=== PATIENT | male | born 1935 | race Hispanic/Latino ===

== ENCOUNTER 2018-02-04 13:55 | Emergency (ER) | payer MEDICARE, OTHER ==
--- NOTE | 2018-02-04 14:15 | Emergency Department Report ---
ED Neuro Deficit HPI - General Stated Complaint: CVA Time Seen by Provider: 02/04/18 13:55 Source: patient, EMS Mode of arrival: Stretcher Limitations: No Limitations - History of Present Illness Initial Comments: Patient is a 82-year-old mellitus July with left-sided weakness and left-sided paralysis. Patient states it started 1 hour ago. Patient states he woke up this way got out of bed and fell to the ground. Patient denies chest pain or shortness of breath. Patient denies headache. Patient denies blurry vision. Patient denies dizziness. According to patient was normally went to bed last night normal and the patient woke up one hour ago with the symptoms -: Sudden Location: speech, left face, dysarthria Presenting Symptoms: Present: Weak/Paralyzed One Side, Facial Droop/Numbness History of same: Yes Place: home Severity: severe Quality: weak, numb Improves With: none Worsens With: none On Anticoagulants: No Context: sudden onset Associated Symptoms: weakness. denies: confusion, chest pain, cough, diaphoresis, fever/chills, headaches, loss of appetite, malise, nausea/vomiting , vertigo, seizures, shortness of breath, syncope Treatments Prior to Arrival: none - Related Data Home Medications: Home Medications Medication Instructions Recorded Confirmed Last Taken Colchicine 0.6 mg PO QDAY 02/04/18 02/04/18 Unknown Diazepam [Valium] 5 mg PO QHS PRN 02/04/18 02/04/18 Unknown Simvastatin 20 mg PO QDAY 02/04/18 02/04/18 Unknown Valsartan/Hydrochlorothiazide 1 each PO QDAY 02/04/18 02/04/18 Unknown [Valsartan-Hctz 320-12.5 mg Tab] Previous Rx's Medication Instructions Recorded Last Taken Type oxyCODONE /ACETAMINOPHEN [Percocet 1 tab PO Q6HR PRN #20 tablet 04/09/14 Unknown Rx 5/325] Allergies/Adverse Reactions: Allergies Allergy/AdvReac Type Severity Reaction Status Date / Time Sulfa (Sulfonamide Allergy Unknown Unverified 01/15/14 13:19 Antibiotics) Penicillins AdvReac Unknown Verified 04/09/14 15:03 ED Review of Systems ROS: Stated complaint: CVA Other details as noted in HPI Constitutional: denies: chills, fever Eyes: denies: eye pain, eye discharge, vision change ENT: denies: ear pain, throat pain Respiratory: denies: cough, shortness of breath, wheezing Cardiovascular: denies: chest pain, palpitations Endocrine: no symptoms reported Gastrointestinal: denies: abdominal pain, nausea, diarrhea Genitourinary: denies: urgency, dysuria Musculoskeletal: denies: back pain, joint swelling, arthralgia Skin: denies: rash, lesions Neurological: weakness, numbness. denies: headache Psychiatric: denies: anxiety, depression Hematological/Lymphatic: denies: easy bleeding, easy bruising ED Past Medical Hx - Past Medical History Previous Medical History?: Yes Hx Hypertension: Yes Hx Heart Attack/AMI: Yes Hx Arthritis: Yes Additional medical history: HIGH CHOLESTEROL. GOUT. CAD - Surgical History Past Surgical History?: Yes Hx Coronary Stent: Yes (X3) Additional Surgical History: VASECTOMY. RIGHT KNEE SURGERY - Family History Family history: no significant - Social History Smoking Status: Never Smoker Substance Use Type: Alcohol - Medications Home Medications: Home Medications Medication Instructions Recorded Confirmed Last Taken Type oxyCODONE /ACETAMINOPHEN [Percocet 1 tab PO Q6HR PRN #20 tablet 04/09/14 Unknown Rx 5/325] Colchicine 0.6 mg PO QDAY 02/04/18 02/04/18 Unknown History Diazepam [Valium] 5 mg PO QHS PRN 02/04/18 02/04/18 Unknown History Simvastatin 20 mg PO QDAY 02/04/18 02/04/18 Unknown History Valsartan/Hydrochlorothiazide 1 each PO QDAY 02/04/18 02/04/18 Unknown History [Valsartan-Hctz 320-12.5 mg Tab] ED Neuro Physical Exam - General Limitations: No Limitations General appearance: alert, in no apparent distress Suspected Stroke: Yes - Head Head exam: Present: atraumatic, normocephalic - Eye Eye exam: Present: normal appearance - ENT ENT exam: Present: mucous membranes moist - Neck Neck exam: Present: normal inspection - Respiratory Respiratory exam: Present: normal lung sounds bilaterally. Absent: respiratory distress - Cardiovascular Cardiovascular Exam: Present: regular rate, normal rhythm. Absent: systolic murmur, diastolic murmur, rubs, gallop - GI/Abdominal GI/Abdominal exam: Present: soft, normal bowel sounds - Rectal Rectal exam: Present: deferred - Extremities Exam Extremities exam: Present: normal inspection - Back Exam Back exam: Present: normal inspection - Neurological Exam Neurological exam: Present: alert, oriented X3 - NIHSS Assessment Interval: Baseline 1a. Level of Consciousness: alert/keenly responsive 1b. LOC Questions: answers both correctly 1c. LOC Commands: performs tasks correctly 2. Best Gaze: forced deviation 3. Visual: partial hemianopia 4. Facial Palsy: unilateral complete paralysis 5b. Motor Arm Right: no drift 5a. Motor Arm Left: no movement 6a. Motor Leg Left: no movement 6b. Motor Leg Right: no drift 7. Limb Ataxia: absent 8. Sensory: severe/total sensory loss 9. Best Language: no aphasia 10. Dysarthria: severe dysarthria 11. Extinction/Inattention: no abnormality Total Score: 18 Stroke Severity: Moderate to Severe Stroke - Psychiatric Psychiatric exam: Present: normal affect, normal mood - Skin Skin exam: Present: warm, dry, intact, normal color. Absent: rash ED Course Vital Signs 02/04/18 02/04/18 02/04/18 14:20 14:24 14:45 Temperature 97.8 F Pulse Rate 102 H 97 H Respiratory 15 16 16 Rate Blood Pressure 176/87 Blood Pressure 180/102 [Left] O2 Sat by Pulse 95 97 Oximetry 02/04/18 16:31 Temperature Pulse Rate 102 H Respiratory Rate Blood Pressure 174/95 Blood Pressure [Left] O2 Sat by Pulse Oximetry - Reevaluation(s) Reevaluation #1: Patient examination upon arrival. Patient sent to CT of head after exam. 02/04/18 15:53 Radiologist called with negative head CT. Neurology will be consulted 02/04/18 14:05 CTA head and neck still pending. 02/04/18 16:05 - Consultations Consultation #1: [facility] neurologist consulted. Neurologist to see patient. 02/04/18 14:15 Neurologist all patient. Patient is outside the window for TPA however recommended CTA of the head and neck. 02/04/18 14:40 Radiologist called report of CTA head and neck. Patient has an occluded MCA and chronically occluded right vertebral artery. 20% the carotid. report was reviewed 02/04/18 16:33 Consultation #2: [facility] consulted 02/04/18 16:35 DR GUZMAN accepted patient to be transferred to [facility]. He is going to call the helicopter picked the patient up from here to transport to [facility] 02/04/18 16:54 [facility] transfer center made aware of the transfer. Patient will be transported via helicopter 02/04/18 16:59 - Lab Data Result diagrams: 02/04/18 14:27 02/04/18 14:27 Lab Results 02/04/18 02/04/18 02/04/18 Range/Units 13:58 14:27 14:27 WBC 8.0 (4.5-11.0) K/mm3 RBC 4.64 (3.65-5.03) M/mm3 Hgb 15.9 H (11.8-15.2) gm/dl Hct 45.2 (35.5-45.6) % MCV 97 H (84-94) fl MCH 34 H (28-32) pg MCHC 35 H (32-34) % RDW 15.6 H (13.2-15.2) % Plt Count 222 (140-440) K/mm3 Lymph % (Auto) 15.0 (13.4-35.0) % Dougherty % (Auto) 6.0 (0.0-7.3) % Eos % (Auto) 4.4 H (0.0-4.3) % Baso % (Auto) 2.0 H (0.0-1.8) % Lymph # 1.2 (1.2-5.4) K/mm3 Dougherty # 0.5 (0.0-0.8) K/mm3 Eos # 0.3 (0.0-0.4) K/mm3 Baso # 0.2 H (0.0-0.1) K/mm3 Seg Neutrophils % 72.6 H (40.0-70.0) % Seg Neutrophils # 5.8 (1.8-7.7) K/mm3 PT 14.2 (12.2-14.9) Sec. INR 1.05 (0.87-1.13) APTT 21.9 L (24.2-36.6) Sec. Thrombin Time (15.1-19.6) Sec. Sodium (137-145) mmol/L Potassium (3.6-5.0) mmol/L Chloride (98-107) mmol/L Carbon Dioxide (22-30) mmol/L Anion Gap mmol/L BUN (9-20) mg/dL Creatinine (0.8-1.5) mg/dL Estimated GFR ml/min BUN/Creatinine Ratio % Glucose (75-100) mg/dL POC Glucose 173 H (70-105) Calcium (8.4-10.2) mg/dL Troponin T (0.00-0.029) ng/mL 02/04/18 02/04/18 Range/Units 14:27 14:27 WBC (4.5-11.0) K/mm3 RBC (3.65-5.03) M/mm3 Hgb (11.8-15.2) gm/dl Hct (35.5-45.6) % MCV (84-94) fl MCH (28-32) pg MCHC (32-34) % RDW (13.2-15.2) % Plt Count (140-440) K/mm3 Lymph % (Auto) (13.4-35.0) % Dougherty % (Auto) (0.0-7.3) % Eos % (Auto) (0.0-4.3) % Baso % (Auto) (0.0-1.8) % Lymph # (1.2-5.4) K/mm3 Dougherty # (0.0-0.8) K/mm3 Eos # (0.0-0.4) K/mm3 Baso # (0.0-0.1) K/mm3 Seg Neutrophils % (40.0-70.0) % Seg Neutrophils # (1.8-7.7) K/mm3 PT (12.2-14.9) Sec. INR (0.87-1.13) APTT (24.2-36.6) Sec. Thrombin Time 17.7 (15.1-19.6) Sec. Sodium 138 (137-145) mmol/L Potassium 3.8 (3.6-5.0) mmol/L Chloride 98.5 (98-107) mmol/L Carbon Dioxide 21 L (22-30) mmol/L Anion Gap 22 mmol/L BUN 11 (9-20) mg/dL Creatinine 1.3 (0.8-1.5) mg/dL Estimated GFR 53 ml/min BUN/Creatinine Ratio 8 % Glucose 192 H (75-100) mg/dL POC Glucose (70-105) Calcium 9.0 (8.4-10.2) mg/dL Troponin T < 0.010 (0.00-0.029) ng/mL - EKG Data -: EKG Interpreted by Me EKG shows normal: sinus rhythm, axis, intervals, QRS complexes, ST-T waves Rate: normal Interpretation: LV[facility] - Radiology Data Radiology results: report reviewed FINAL REPORT EXAM: CT HEAD/BRAIN WO CON HISTORY: neuro deficits lt; 6hrs or sx present upon awakening TECHNIQUE: CT of the head was performed. No intravenous contrast was administered. PRIORS: None. FINDINGS: There is moderate cerebral atrophy. There is no evidence of intracranial hemorrhage. There is no edema, mass effect or midline shift. There are no abnormal extra-axial fluid collections. The ventricles are appropriate for brain volume. There is no skull fracture seen. The visualized aspects of the sinuses are clear. IMPRESSION: There is no acute intracranial abnormality identified. Transcribed By: LOUIS Dictated By: ALTHEA GREENBERG MD Electronically Authenticated By: ALTHEA GREENBERG MD Signed Date/Time: 02/04/18 5692 FINAL REPORT EXAM: CT angiography of the neck. CT angiography of the head. HISTORY: CVA COMPARISON: None available. TECHNIQUE: Contiguous axial images were obtained of the head neck. Additional sagittal and coronal reformatted images were obtained. Administration of IV contrast given per institution protocol. Images submitted for interpretation. Max intensity projection images. FINDINGS: CT angiography of the neck: There is segmental occlusion of the V1 and V2 segments of the right vertebral artery. V3 segment and V4 segments are occluded. Prominent calcified plaque along the right vertebral artery. This is suspected to be on a chronic basis. No acute infarct identified within the right cerebellar region. [id number] calcified plaque at the origin of the left vertebral artery. No high-grade stenosis. Left vertebral artery is dominant. Extracranial portion left vertebral artery is patent. Moderate calcified plaque within the proximal portion of the intracranial left vertebral artery. Estimated stenosis at least 50 percent. Moderate focal narrowing of the mid basilar artery. Estimated stenosis at least 50 percent. Mild to moderate calcified plaque along the left carotid bifurcation. Lumen measures 5 millimeters at the origin of the left internal carotid artery, more distally 5 millimeters. No associated stenosis. Moderate calcified plaque at the right internal carotid artery origin. The sagittal and coronal reformats cannot be windowed. There is submitted directly from separate workstation. This limits evaluation. The lumen narrows to 4 millimeters at the origin. More distally the lumen measures 5 millimeters. Approximately 20 percent stenosis by NASCET criteria. Length of stenosis approximately 2 centimeters. Otherwise, extracranial portions of the internal carotid arteries are patent. Mild to moderate calcified plaque along the aortic arch. Spaces of the neck are preserved. Upper airway is patent. Thyroid gland and salivary glands are unremarkable. CT angiography of the head: Mild to moderate calcified plaque along the cavernous is supraclinoid portions of the internal carotid arteries. No high-grade stenosis. The left A1 segment is slightly hypoplastic compared to the right, anatomic variant. Anterior communicating artery is present. Symmetric opacification of branching of the anterior cerebral arteries otherwise. Tiny bilateral posterior communicating arteries. No high-grade stenosis or occlusion of posterior cerebral arterial branches. Short segment occlusion of the M1 segment of the right middle cerebral artery. There appears to be reconstitution distally involving the distal M2 and M3 segments. Questionable early ischemic changes involving the right subinsular region. MRI the brain suggested for further evaluation. No early draining vein. No area of abnormal hypervascular enhancement. Gross normal opacification major dural venous sinuses. As described on the CT angiography neck portion exam, there is chronic appearing occlusion of the intracranial portion right vertebral artery. Focal stenosis of the midbasilar artery with estimated stenosis approximately 50 percent and focal stenosis of the proximal left vertebral artery intracranially due to calcified plaque with estimated stenosis approximately 50 percent. IMPRESSION: Chronic appearing occlusion right vertebral artery. Intracranial portion right vertebral artery is occluded. No corresponding ischemic changes within the right posterior fossa region by CT. If clinical concern for acute intracranial process remains, MRI would be suggested for further evaluation. Moderate calcified plaque at the origin the right internal carotid artery. Estimated stenosis 20 percent by NASCET criteria. Length of stenosis at least 2 centimeters. Mild to moderate calcified plaque at the origin of the left internal carotid artery. No significant associated stenosis by NASCET criteria. 50 percent stenosis of the midbasilar artery and 50 percent stenosis at the proximal aspect the left intracranial vertebral artery. Mild to moderate calcified plaque along the cavernous and supraclinoid portions of the internal carotid arteries. No high-grade stenosis or occlusion. Occlusion of the M1 segment of the right middle cerebral artery. There is reconstitution of the distal M2 and M3 segments. There questionable ischemic changes involving the right subinsular region. Findings discussed with Dr. Mccarthy on February 04, 2018 at 1620 hours EST. Transcribed By: LMA Dictated By: YULIYA PAK MD Electronically Authenticated By: YULIYA PAK MD Signed Date/Time: 02/04/18 1621 - Medical Decision Making Patient is an 82-year-old male that presents emergency room with left-sided GAYATHRI -paresis - Differential Diagnosis CVA. WEAKNESS. Dehydration. Med reaction. MCA OCCUL - Core Measures AMI Core Measures Followed: Yes Critical Care Time: Yes Critical care attestation.: If time is entered above; I have spent that time in minutes in the direct care of this critically ill patient, excluding procedure time. Critical Care Time: 65 MINUTES FOR CC TIME. ED Disposition Clinical Impression: Hemiparesis affecting left side as late effect of stroke, H/O ischemic right MCA stroke CVA (cerebral vascular accident) Qualifiers: CVA mechanism: occlusion Precerebral and cerebral artery: middle cerebral artery Laterality of affected vessel: right Qualified Code(s): I63.511 - Cerebral infarction due to unspecified occlusion or stenosis of right middle cerebral artery Hypertension Qualifiers: Hypertension type: essential hypertension Qualified Code(s): I10 - Essential ( primary) hypertension Disposition: DC-09 OP ADMIT IP TO THIS HOSP Is pt being admited?: No Does the pt Need Aspirin: No Condition: Critical Instructions: Hypertension (ED) Time of Disposition: 17:05
[2018-02-04 15:07] LABS: Basophils # (Auto) 0.2 K/mm3 (0.0-0.1); Eosinophils # (Auto) 0.3 K/mm3 (0.0-0.4); Eosinophils % (Auto) 4.4 % (0.0-4.3); Hematocrit 45.2 % (35.5-45.6); Hemoglobin 15.9 gm/dl (11.8-15.2); Lymphocytes # (Auto) 1.2 K/mm3 (1.2-5.4); Mean Corpuscular HGB Conc 35 % (32-34); Mean Corpuscular Hemoglobin 34 pg (28-32); Mean Corpuscular Volume 97 fl (84-94); Monocytes # (Auto) 0.5 K/mm3 (0.0-0.8); Platelet Count 222 K/mm3 (140-440); Red Blood Count 4.64 M/mm3 (3.65-5.03); Red Cell Distribution Width 15.6 % (13.2-15.2)
[2018-02-04 15:13] LABS: BUN/Creatinine Ratio 8; Blood Urea Nitrogen 11 mg/dL (9-20); Hemolysis Index 6
[2018-02-04 15:14] LABS: INR 1.05 (0.87-1.13); Partial Thromboplastin Time 21.9 Sec. (24.2-36.6)
[2018-02-04] MEDS ORDERED: APRESOLINE IV ONE (16:04)
--- NOTE | 2018-02-04 16:22 | Cat Scan Report ---
FINAL REPORT EXAM: CT angiography of the neck. CT angiography of the head. HISTORY: CVA COMPARISON: None available. TECHNIQUE: Contiguous axial images were obtained of the head neck. Additional sagittal and coronal reformatted images were obtained. Administration of IV contrast given per institution protocol. Images submitted for interpretation. Max intensity projection images. FINDINGS: CT angiography of the neck: There is segmental occlusion of the V1 and V2 segments of the right vertebral artery. V3 segment and V4 segments are occluded. Prominent calcified plaque along the right vertebral artery. This is suspected to be on a chronic basis. No acute infarct identified within the right cerebellar region. [id number] calcified plaque at the origin of the left vertebral artery. No high-grade stenosis. Left vertebral artery is dominant. Extracranial portion left vertebral artery is patent. Moderate calcified plaque within the proximal portion of the intracranial left vertebral artery. Estimated stenosis at least 50 percent. Moderate focal narrowing of the mid basilar artery. Estimated stenosis at least 50 percent. Mild to moderate calcified plaque along the left carotid bifurcation. Lumen measures 5 millimeters at the origin of the left internal carotid artery, more distally 5 millimeters. No associated stenosis. Moderate calcified plaque at the right internal carotid artery origin. The sagittal and coronal reformats cannot be windowed. There is submitted directly from separate workstation. This limits evaluation. The lumen narrows to 4 millimeters at the origin. More distally the lumen measures 5 millimeters. Approximately 20 percent stenosis by NASCET criteria. Length of stenosis approximately 2 centimeters. Otherwise, extracranial portions of the internal carotid arteries are patent. Mild to moderate calcified plaque along the aortic arch. Spaces of the neck are preserved. Upper airway is patent. Thyroid gland and salivary glands are unremarkable. CT angiography of the head: Mild to moderate calcified plaque along the cavernous is supraclinoid portions of the internal carotid arteries. No high-grade stenosis. The left A1 segment is slightly hypoplastic compared to the right, anatomic variant. Anterior communicating artery is present. Symmetric opacification of branching of the anterior cerebral arteries otherwise. Tiny bilateral posterior communicating arteries. No high-grade stenosis or occlusion of posterior cerebral arterial branches. Short segment occlusion of the M1 segment of the right middle cerebral artery. There appears to be reconstitution distally involving the distal M2 and M3 segments. Questionable early ischemic changes involving the right subinsular region. MRI the brain suggested for further evaluation. No early draining vein. No area of abnormal hypervascular enhancement. Gross normal opacification major dural venous sinuses. As described on the CT angiography neck portion exam, there is chronic appearing occlusion of the intracranial portion right vertebral artery. Focal stenosis of the midbasilar artery with estimated stenosis approximately 50 percent and focal stenosis of the proximal left vertebral artery intracranially due to calcified plaque with estimated stenosis approximately 50 percent. IMPRESSION: Chronic appearing occlusion right vertebral artery. Intracranial portion right vertebral artery is occluded. No corresponding ischemic changes within the right posterior fossa region by CT. If clinical concern for acute intracranial process remains, MRI would be suggested for further evaluation. Moderate calcified plaque at the origin the right internal carotid artery. Estimated stenosis 20 percent by NASCET criteria. Length of stenosis at least 2 centimeters. Mild to moderate calcified plaque at the origin of the left internal carotid artery. No significant associated stenosis by NASCET criteria. 50 percent stenosis of the midbasilar artery and 50 percent stenosis at the proximal aspect the left intracranial vertebral artery. Mild to moderate calcified plaque along the cavernous and supraclinoid portions of the internal carotid arteries. No high-grade stenosis or occlusion. Occlusion of the M1 segment of the right middle cerebral artery. There is reconstitution of the distal M2 and M3 segments. There questionable ischemic changes involving the right subinsular region. Findings discussed with Dr. Mccarthy on February 04, 2018 at 1620 hours EST.
[2018-02-04 16:36] VITALS: BP 177/98
== END 2018-02-04 17:32 | disposition admitted as inpatient to this hospital (09) ==
LOC: ED 13:55
DX: I63.511 Cerebral infarction due to unspecified occlusion or stenosis of right middle cerebral artery (principal); I10 Essential (primary) hypertension; G81.94 Hemiplegia, unspecified affecting left nondominant side; I11.0 Hypertensive heart disease with heart failure; M19.90 Unspecified osteoarthritis, unspecified site; E78.00 Pure hypercholesterolemia, unspecified; M10.9 Gout, unspecified; Z95.1 Presence of aortocoronary bypass graft; Z98.52 Vasectomy status; Z88.2 Allergy status to sulfonamides; Z88.0 Allergy status to penicillin
CPT/HCPCS: 36415; 70450; 70496; 70498; 80048; 82962; 84484; 85025; 85610; 85670; 85730; 93005; 93010; 96374; 99291; J0360; Q9967